=== PATIENT | male | born 1980 | race African-American/Black ===

== ENCOUNTER → 2018-07-13 | Outpatient (CLI) | payer OTHER ==
[2018-07-13 12:51] LABS: ANION GAP 6 mmol/L (5-15); CALCIUM 8.7 mg/dL (8.5-10.1); CHLORIDE 103 mmol/L (98-107); CREATININE 1.11 mg/dL (0.7-1.3)
[2018-07-13 13:18] LABS: HEMOGLOBIN A1C 6.7 % (4.2-6.3)
== END | disposition home or self-care (01) ==
LOC: CFH 09:35
PROVIDERS: ATTEND Physician Assistant
DX: Z00.01 Encounter for general adult medical examination with abnormal findings (principal); Z12.11 Encounter for screening for malignant neoplasm of colon; Z13.220 Encounter for screening for lipoid disorders; Z12.5 Encounter for screening for malignant neoplasm of prostate; E11.9 Type 2 diabetes mellitus without complications; I10 Essential (primary) hypertension; M54.5 Low back pain; E55.9 Vitamin D deficiency, unspecified; G47.00 Insomnia, unspecified; R06.83 Snoring; J45.909 Unspecified asthma, uncomplicated; R09.02 Hypoxemia
CPT/HCPCS: 36415; 80048; 82306; 83036

== ENCOUNTER 2018-09-01 19:15 | Emergency (ER) | payer OTHER ==
[~2018-09-01] VITALS: Ht 172.7 cm; Wt 143.6 kg
[2018-09-01 19:26] VITALS: BP 142/95
== END 2018-09-01 20:25 | disposition home or self-care (01) ==
LOC: ED 20:23
DX: J06.9 Acute upper respiratory infection, unspecified (principal); B97.89 Other viral agents as the cause of diseases classified elsewhere; J45.909 Unspecified asthma, uncomplicated; I10 Essential (primary) hypertension
CPT/HCPCS: 71046; 99283

== ENCOUNTER 2020-04-18 10:29 | Inpatient (IN) | payer OTHER ==
[~2020-04-18] VITALS: Ht 172.7 cm; Wt 142.8 kg
[2020-04-18] MEDS ORDERED: ALBUTEROL/IPRATROPIUM 2.5MG/0.5MG, 3 ML NPPB ONE (11:00)
[2020-04-18 11:28] LABS: BASOPHILS # (AUTO) 0.02 x10^3/uL (0-0.1); BASOPHILS % (AUTO) 0 % (0-1); EOSINOPHILS # (AUTO) 0.02 x10^3/uL (0-0.4); EOSINOPHILS % (AUTO) 0 % (1-7); LYMPHOCYTES # (AUTO) 2.58 x10^3/uL (1-3.4); LYMPHOCYTES % (AUTO) 43 % (22-44); MD NO; MEAN CORPUSCULAR HEMOGLOBIN 28.2 pg (27.5-34.5); MEAN CORPUSCULAR VOLUME 85.5 fL (81-97); MEAN PLATELET VOLUME 8.3 fL (7.4-10.4); MONOCYTES # (AUTO) 0.88 x10^3/uL (0.2-0.8); MONOCYTES % (AUTO) 15 % (2-9); NEUTROPHILS # (AUTO) 2.54 x10^3/uL (1.8-6.8); NEUTROPHILS % (AUTO) 42 % (42-75); PLATELET COUNT 206 x10^3/uL (130-400); RED CELL DISTRIBUTION WIDTH 14.2 % (9.4-14.8)
--- NOTE | 2020-04-18 11:30 | NUR ---
PT PLACED ON ALL ROOM MONITORING.
[2020-04-18] MEDS ORDERED: ALBUTEROL/IPRATROPIUM 2.5MG/0.5MG, 3 ML ONE (11:31)
[2020-04-18 11:38] LABS: ALBUMIN 3.5 g/dL (3.4-5.0); ANION GAP 6 mmol/L (5-15); CALCIUM 8.6 mg/dL (8.5-10.1); CHLORIDE 99 mmol/L (98-107); CREATININE 1.77 mg/dL (0.7-1.3)
--- NOTE | 2020-04-18 11:54 | NUR ---
THIS RN IN ROOM TO PROVIDE NEB TX. PT FOUND TO BE LYING WITH UPPER HALF OF BODY OFF OF FOOT OF BED, STATING "MUSCLE SPASMS". HR SEEN TO TO BE AT 115-135. PT REPORTS SPASMS TO BILATERAL FLANK AND ABD AND HAS HAD PREVIOUSLY. PT STATES UNABLE TO SIT IN BED FOR XRAY. 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 NEB TX STARTED. ERP NOTIFIED OF BACK SPASMS AND DELAY WITH XR.
--- NOTE | 2020-04-18 12:26 | NUR ---
PT MEDICATED FOR BACK AND ABDOMINAL "MUSCLE SPASMS", NOW RATED 5/10. PCXR COMPLETED. PT PLACED BACK ON ALL ROOM MONITORING. PULSE OX READING 88-92% ON RA. OXYGEN PLACED AT 2LITERS VIA NC. PT DENIES CP AT THIS TIME. PT STATES SOB AND BREATHING IMPROVED FOLLOWING NEB TX. PT DIAPHORETIC AT THIS TIME, STATES ONSET OF "SWEATS" WHEN SPASMS UP TO 10/10. DIZZY WHEN STANDING. BP 89/45. VS UPDATED IN COMPUTER, ERP NOTIFIED.
[2020-04-18] MEDS ORDERED: OXYcodone/APAP 5/325MG TABLET PO ONE (12:30)
--- NOTE | 2020-04-18 12:50 | NUR ---
ADD ON CTA.
[2020-04-18] MEDS ORDERED: SODIUM CHLORIDE FLUSH 10ML SYR IVF ONE (13:00)
--- NOTE | 2020-04-18 13:58 | NUR ---
VSS/UPDATED IN COMPUTER. IVF BOLUS INFUSING, PAIN LEVEL DECREASED TO 2/10. PT RESTING, EYES CLOSED. CONTINUE TO AWAIT CT AVAILABILITY.
[2020-04-18] MEDS ORDERED: SODIUM CHLORIDE 0.9% 1,000ML IVBOLUS ONE (14:00)
--- NOTE | 2020-04-18 14:17 | NUR ---
CALL TO CT TO INQUIRE ON DELAY. PER SWAGE TENDER, PT NEXT TO BE BROUGHT OVER AFTER CURRENT EXAM COMPLETED.
--- NOTE | 2020-04-18 14:30 | NUR ---
PT TO CT.
--- NOTE | 2020-04-18 14:56 | NUR ---
IV INFILTRATED IN CT. IV D/C'D, HEAT PLACED AT SITE. NEW IV STARTED.
[2020-04-18] MEDS ORDERED: OMNIPAQUE 350 MG/ML, 150 ML BOTTLE ONE (15:10)
--- NOTE | 2020-04-18 16:11 | NUR ---
BREAK RN: PT AMBULATED IN ROOM ON RA. DESATS TO 83% AND HR INCREASED TO 133. ERP DR. SCOTT NOTIFIED. PT PLACED ON 2L NC NOW SATING 93%. ERP AT BEDSIDE.
[2020-04-18] MEDS ORDERED: FLUT1BLS INH (16:51)
[2020-04-18] MEDS ORDERED: GABA600T7 PO (16:51)
[2020-04-18] MEDS ORDERED: ALBU18HF INH (16:51)
[2020-04-18] MEDS ORDERED: METH500T7 PO (16:51)
[2020-04-18] MEDS ORDERED: AMLO-150 PO (16:51)
[2020-04-18] MEDS ORDERED: METF500T17 PO (16:51)
[2020-04-18] MEDS ORDERED: OLME1TAB86 PO (16:51)
[2020-04-18] MEDS ORDERED: ROSU5TAB PO (16:51)
--- NOTE | 2020-04-18 16:54 | NUR ---
MED REC COMPLETED. SM IN TO SEE PT.
[2020-04-18] MEDS ORDERED: SODIUM CHLORIDE 0.9% 1,000 ML IV ONE (16:58)
[2020-04-18] MEDS ORDERED: SODIUM CHLORIDE FLUSH 10ML SYR IVF PRN (17:00)
[2020-04-18] MEDS ORDERED: HEPARIN 5,000 UNITS/ML, 1ML IV PRN (17:00)
[2020-04-18] MEDS ORDERED: HEPARIN 25,000 UNITS/250ML PMX 250 ML IV PRN (17:00)
[2020-04-18] MEDS ORDERED: HEPARIN 5,000 UNITS/ML, 1ML IV ONE (17:00)
[2020-04-18] MEDS ORDERED: ALBUTEROL HFA 90 MCG/SPRAY INH PRN ×2 (17:00→17:30)
[2020-04-18] MEDS ORDERED: ONDANSETRON ODT 4 MG PO PRN (17:30)
[2020-04-18] MEDS ORDERED: DOCUSATE 100 MG CAPSULE PO PRN (17:30)
[2020-04-18] MEDS ORDERED: ONDANSETRON 2MG/ML, 2ML IVPush PRN (17:30)
[2020-04-18] MEDS ORDERED: DEXTROSE 4 GM TAB.CHEW PO PRN (17:30)
[2020-04-18] MEDS ORDERED: PHARMACY MAY ADJ FOR RENAL FX MC PRN (17:30)
[2020-04-18] MEDS ORDERED: GLUCAGON 1 MG IM PRN (17:30)
[2020-04-18] MEDS ORDERED: DEXTROSE 50%, 50ML SYRINGE IVPush PRN (17:30)
[2020-04-18] MEDS ORDERED: hydrALAzine 20 MG/ML, 1ML IVPush PRN (17:30)
--- NOTE | 2020-04-18 17:30 | NUR ---
REPORT TO ANTIONE CROOK READY FOR TRANSPORT.
--- NOTE | 2020-04-18 18:05 | NUR ---
PER RN, PT'S GOING TO THE FLOOR, US CAN BE DONE IN PT'S ROOM - US DELAY
[2020-04-18 18:15] VITALS: BP 106/73
[2020-04-18] MEDS: HEPARIN 5,000 UNITS/ML, 1ML SQ SCH ×2 (18:30→20:06)
[2020-04-18 18:38] VITALS: BP 101/66
[2020-04-18] MEDS: METHOCARBAMOL 500 MG TABLET PO PRN (18:38)
[2020-04-18] MEDS: ACETAMINOPHEN 325 MG TABLET PO PRN (18:38)
[2020-04-18] MEDS: methylPREDNISolone SOD SUCC 40 MG/ML IV SCH (18:38)
[2020-04-18] MEDS: INSULIN LISPRO 100 UNITS/ML, PEN SQ-INSULIN SCH (19:08)
[2020-04-18] MEDS: SODIUM CHLORIDE FLUSH 10ML SYR IVF SCH (20:06)
[2020-04-18] MEDS: GABAPENTIN 300 MG CAPSULE PO SCH (20:06)
[2020-04-18] MEDS: GUAIFENESIN ER 600 MG TABLET PO SCH (20:06)
[2020-04-18] MEDS: MELATONIN 5 MG TABLET PO SCH (20:06)
[2020-04-18] MEDS: ASCORBATE SODIUM 3,000 MG in SODIUM CHLORIDE 0.9% 250 ML IVPB SCH (20:06)
[2020-04-18] MEDS: THIAMINE 100MG TABLET PO SCH (20:06)
[2020-04-19 02:25] VITALS: BP 116/75
[2020-04-19] MEDS: ASCORBATE SODIUM 3,000 MG in SODIUM CHLORIDE 0.9% 250 ML IVPB SCH ×4 (02:26→22:00)
[2020-04-19] MEDS ORDERED: methylPREDNISolone SOD SUCC 125 MG/2 ML ONE ×2 (05:33→20:06)
[2020-04-19 05:35] LABS: BASOPHILS # (AUTO) 0.02 x10^3/uL (0-0.1); BASOPHILS % (AUTO) 1 % (0-1); EOSINOPHILS # (AUTO) 0.01 x10^3/uL (0-0.4); EOSINOPHILS % (AUTO) 0 % (1-7); LYMPHOCYTES % (AUTO) 39 % (22-44); MD NO; MEAN CORPUSCULAR HEMOGLOBIN 27.8 pg (27.5-34.5); MEAN CORPUSCULAR HGB CONC 32.2 g/dL (33.2-36.2); MEAN CORPUSCULAR VOLUME 86.3 fL (81-97); MEAN PLATELET VOLUME 8.4 fL (7.4-10.4); MONOCYTES # (AUTO) 0.61 x10^3/uL (0.2-0.8); MONOCYTES % (AUTO) 13 % (2-9); NEUTROPHILS # (AUTO) 2.34 x10^3/uL (1.8-6.8); NEUTROPHILS % (AUTO) 48 % (42-75); PLATELET COUNT 222 x10^3/uL (130-400); RED BLOOD COUNT 5.35 x10^6/uL (4.38-5.82); RED CELL DISTRIBUTION WIDTH 13.5 % (9.4-14.8)
[2020-04-19] MEDS: methylPREDNISolone SOD SUCC 40 MG/ML IV SCH ×2 (05:38→17:39)
[2020-04-19] MEDS: HEPARIN 5,000 UNITS/ML, 1ML SQ SCH ×3 (05:38→20:19)
[2020-04-19 05:43] LABS: ALBUMIN 3.3 g/dL (3.4-5.0); ANION GAP 10 mmol/L (5-15); CALCIUM 8.8 mg/dL (8.5-10.1); CHLORIDE 99 mmol/L (98-107)
[2020-04-19 05:49] LABS: ALANINE AMINOTRANSFERASE 49 U/L (12-78); ALKALINE PHOSPHATASE 73 U/L (45-117); BILIRUBIN,TOTAL 0.6 mg/dL (0.2-1.0); CHOL/HDL RATIO 4.9; CHOLESTEROL, TOTAL 108 mg/dL (140-239); CREATININE 1.17 mg/dL (0.7-1.3); HDL CHOL % 20 % (26-37); HDL CHOLESTEROL (DIRECT) 22 mg/dL (40-60); LDL CHOLESTEROL,CALCULATED 73 mg/dL (54-169); LDL/HDL RATIO 3.3 (0.5-3.0); TRIGLYCERIDES 66 mg/dL (50-200); VLDL CHOLESTEROL 13 mg/dL (0-25)
[2020-04-19 06:41] VITALS: BP 107/67
[2020-04-19] MEDS: INSULIN LISPRO 100 UNITS/ML, PEN SQ-INSULIN SCH ×4 (07:12→20:29)
[2020-04-19] MEDS: GABAPENTIN 300 MG CAPSULE PO SCH ×3 (07:13→20:19)
[2020-04-19] MEDS: PANTOPRAZOLE 40MG TABLET PO SCH (07:13)
[2020-04-19] MEDS: ZINC SULFATE 220 MG CAPSULE PO SCH (07:13)
[2020-04-19] MEDS: SODIUM CHLORIDE FLUSH 10ML SYR IVF SCH ×2 (07:13→20:29)
[2020-04-19] MEDS: GUAIFENESIN ER 600 MG TABLET PO SCH ×2 (07:13→20:18)
[2020-04-19] MEDS: THIAMINE 100MG TABLET PO SCH ×2 (07:13→20:19)
[2020-04-19] MEDS: CHOLECALCIFEROL 5,000u TAB PO SCH (07:13)
[2020-04-19] MEDS ORDERED: AMLODIPINE 5 MG TABLET PO SCH (09:00)
[2020-04-19 09:34] LABS: TROPONIN I < 0.015 ng/mL (0.000-0.045)
[2020-04-19] MEDS: FLUTICASONE/VILANTEROL 200-25MCG/INH INH SCH (10:33)
[2020-04-19] MEDS: METHOCARBAMOL 500 MG TABLET PO PRN (10:52)
[2020-04-19] MEDS: ACETAMINOPHEN 325 MG TABLET PO PRN (13:13)
[2020-04-19 13:16] VITALS: BP 127/71
[2020-04-19 14:12] LABS: TROPONIN I < 0.015 ng/mL (0.000-0.045)
[2020-04-19 19:10] VITALS: BP 131/85
[2020-04-19] MEDS: MELATONIN 5 MG TABLET PO SCH (20:18)
[2020-04-20 00:16] VITALS: BP 120/78
[2020-04-20] MEDS: ASCORBATE SODIUM 3,000 MG in SODIUM CHLORIDE 0.9% 250 ML IVPB SCH (03:56)
[2020-04-20] MEDS: HEPARIN 5,000 UNITS/ML, 1ML SQ SCH (05:00)
[2020-04-20] MEDS: methylPREDNISolone SOD SUCC 40 MG/ML IV SCH (05:31)
[2020-04-20 06:32] VITALS: BP 117/76
[2020-04-20] MEDS: INSULIN LISPRO 100 UNITS/ML, PEN SQ-INSULIN SCH (07:00)
[2020-04-20] MEDS: GABAPENTIN 300 MG CAPSULE PO SCH (09:35)
[2020-04-20] MEDS: FLUTICASONE/VILANTEROL 200-25MCG/INH INH SCH (09:35)
[2020-04-20] MEDS: PANTOPRAZOLE 40MG TABLET PO SCH (09:36)
[2020-04-20] MEDS: THIAMINE 100MG TABLET PO SCH (09:36)
[2020-04-20] MEDS: GUAIFENESIN ER 600 MG TABLET PO SCH (09:36)
[2020-04-20] MEDS: ZINC SULFATE 220 MG CAPSULE PO SCH (09:36)
[2020-04-20] MEDS: CHOLECALCIFEROL 5,000u TAB PO SCH (09:36)
[2020-04-20] MEDS ORDERED: METOPROLOL TARTRATE 25 MG TAB PO SCH (10:30)
[2020-04-20] MEDS ORDERED: GUAI600T31 PO (10:48)
[2020-04-20] MEDS ORDERED: PRED20TA PO (10:48)
[2020-04-20] MEDS ORDERED: METO25TA35 PO (10:48)
[2020-04-20 12:08] VITALS: BP 131/79
== END 2020-04-20 13:38 | disposition home or self-care (01) | DRG 189 ==
LOC: ED 11:22 → 4EST 18:14
PROVIDERS: ADMIT Emergency Medicine; ATTEND Internal Medicine
DX: J96.01 Acute respiratory failure with hypoxia (principal); N17.0 Acute kidney failure with tubular necrosis; J98.11 Atelectasis; J45.901 Unspecified asthma with (acute) exacerbation; Z68.42 Body mass index [BMI] 45.0-49.9, adult; E11.9 Type 2 diabetes mellitus without complications; E66.01 Morbid (severe) obesity due to excess calories; E78.5 Hyperlipidemia, unspecified; G47.33 Obstructive sleep apnea (adult) (pediatric); G89.29 Other chronic pain; I10 Essential (primary) hypertension; J45.909 Unspecified asthma, uncomplicated; K76.0 Fatty (change of) liver, not elsewhere classified; Z20.828 Contact with and (suspected) exposure to other viral communicable diseases; Z82.49 Family history of ischemic heart disease and other diseases of the circulatory system
CPT/HCPCS: 36415; 71045; 71275; 80048; 80053; 80061; 82040; 82550; 82962; 83735; 83880; 84484; 85025; 85379; 87040; 87635; 93005; 93306; 93970; G0378; J1644; Q9967; J2920; J7030; J7050